=== PATIENT | female | born 1965 | race Caucasian/White ===

== ENCOUNTER 2018-03-24 04:49 | Inpatient (IN) | payer OTHER ==
[2018-03-24] VITALS (51 sets, daily range): BP systolic 92–145; BP diastolic 46–102
[~2018-03-24] VITALS: Ht 157.5 cm; Wt 97.6 kg
--- NOTE | ~2018-03-24 | EEG ---
[facility] [place] [address] [place] [address] ELECTROENCEPHALOGRAM Name: ARIAN HOLCOMB Room #: 207-P ADM IN M.R.#: [id number] Admission: 03/24/18 Attend Phys: Arya Sal MD Discharge: Date of : 63 Report #: [id number] THIS REPORT FOR: //name// CC: Arya SNOW unknown DATE OF SERVICE: 03/24/2018 This patient is being evaluated for altered mental status. EEG was done by placing the electrodes by standard 10-20 system of electrode placement. Both referential and sequential montages were used for recording. Background activity in this patient's EEG is about 9-10 Hz and 30 microvolts. The patient went to sleep that is associated with bilateral slowing and vertex sharp waves. Photic stimulation is unremarkable. Throughout the record, no active epileptiform activity was noticed. IMPRESSION: This EEG is mildly intermixed with theta range slowing on both sides. That is a nonspecific abnormality, which can occur with encephalopathy, effect of psychotropic medication, etc. Finding is relatively mild. No active epileptiform activity was noticed. <ELECTRONICALLY SIGNED> By: Avel Elizalde MD 03/26/18 [id number] [id number] Avel Elizalde MD /nt
--- NOTE | ~2018-03-24 | HC ---
[facility] [place] [address] [address] [place] [address] CONSULTATION Name: ARIAN HOLCOMB Room #: 207-P ADM IN M.R.#: [id number] Admission: 03/24/18 Attend Phys: Arya Sal MD Discharge: Date of : 63 Report #: [id number] THIS REPORT FOR: //name// CC: Arya Sal [facility] unknown ROOM: 242 in ICU. HISTORY OF PRESENT ILLNESS: This is a 52-year-old female patient who was evaluated by me for altered mental status. The patient is not able to provide reliable history because she said she does not remember what happened to her. She has numerous problems going on like the psychiatric problems, some question about her medication, etc. Neurological consultation was requested to evaluate the patient for any neurological etiology for the patient's altered mental status and I will strictly confine myself to that. There is no firsthand witness, but the record indicates that she was found bend over, but apparently does not have any injury to the head or she did not hit her head as I understand. There is some question that she may have taken her medication, which are extensive improperly but she does not know one way or another. She has woken up since then and has become more responsive. REVIEW OF SYSTEMS: She indicates she is disabled. Her disability is because of fibromyalgia. She also says she has a chronic neck pain, which has been evaluated by several MRIs and CT scan and she has multiple scans of the brain also. I do not have any of those records. Apparently, she had CT scan in the outside facility and that was unremarkable. She has multiple psychiatric shows and she is on multiple medications for that. Medication does include Ultram and Elavil, which are epileptiform but that also include Valium, clonazepam and topiramate, which has antiepileptic effect. Records indicate that she has a history of anxiety, depression, gastric bypass, cholecystectomy, urinary tract infection. There was relevant 14-point review of system. PAST MEDICAL HISTORY: Positive for liver problem. FAMILY HISTORY: Negative for early age stroke. SOCIAL HISTORY: She indicates she does not drink any alcohol. PHYSICAL EXAMINATION: Indicate she is alert. She is responsive. She talks softly, but she can tell me what month it is, what hospital she is in, and who the president is. Cranial nerve examinations appear noncontributory. Neuromuscular examinations appear symmetrical. She does not have any meningeal sign and did not complain of much pain there except the baseline pain she has all over the body. I could not look at the fundus. There is no carotid bruit. There is no thyroid mass. She is moderately [place] [address] CONSULTATION Name: ARIAN HOLCOMB Room #: [address] [place] [address] IN M.R.#: [id number] Admission: 03/24/18 Attend Phys: Arya Sal MD Discharge: Date of : 63 Report #: [id number] have any dysmorphic features of eyes, ears and face. Cardiac examinations appear unremarkable. She has no respiratory difficulty. Blood pressure is 118/82, temperature is 96.8, pulse is 85. LABORATORY DATA: Indicate white count of 4.6. Sodium is normal. CT was done outside and was reported as normal. IMPRESSION: It looks like her symptoms were secondary to psychiatric medication, getting mixed up. I will get an EEG to further evaluate her. If she is back to her baseline, I do not think neurologically we need to do much. We might consider MRI, but that is not available until Monday for routine MRIs. I will reevaluate her tomorrow and we might schedule that, but presently there is no indication to make it a stat MRI because she is doing better. Thank you very much for this referral. <ELECTRONICALLY SIGNED> By: Avel Elizalde MD 03/26/18 1135 [id number] Avel Elizalde MD /nt
[2018-03-24 11:20] LABS: HEMATOCRIT 36.3 % (37.0-47.0); HEMOGLOBIN 12.3 gm/dL (12.0-15.0); MCH 30.5 pg (26.0-34.0); MCHC 33.8 g/dL (28.0-37.0); MCV 90.2 fL (80.0-100.0); RBC 4.03 mil/uL (4.20-5.00); RDW 12.7 % (10.5-14.5); WBC 4.6 thou/uL (4.0-11.0)
[2018-03-24 11:44] LABS: CALCIUM 8.8 mg/dL (8.5-10.1)
[2018-03-24 11:50] LABS: ALBUMIN 2.9 g/dL (3.4-5.0); TOTAL BILIRUBIN 0.3 mg/dL (<0.1-1.0); TOTAL PROTEIN 6.3 g/dL (6.4-8.2)
[2018-03-24 11:50] LABS: AMP/METHAMP Negative (Negative); BARBITURATES POSITIVE (Negative); BENZODIAZEPINES Negative (Negative); COCAINE Negative (Negative); METHADONE Negative (Negative); OPIATES Negative (Negative); PCP Negative (Negative)
[2018-03-24] MEDS ORDERED: NEURONTIN 300300 M1 PO (14:43)
[2018-03-24] MEDS ORDERED: AMITRIPTYLINE100 MG PO (14:45)
[2018-03-24] MEDS ORDERED: TROKENDI XR50 MG PO (14:45)
[2018-03-24] MEDS ORDERED: TROKENDI XR100 MG PO (14:45)
[2018-03-24] MEDS ORDERED: TRAMADOL 50 MG50 MG PO ×2 (14:46→14:47)
[2018-03-24] MEDS ORDERED: CLONAZEPAM 1 MG1 M1 PO (14:48)
[2018-03-24] MEDS ORDERED: SERTRALINE HCL50 MG PO (14:49)
[2018-03-24] MEDS ORDERED: FLORINEF ACETA0.1 MG PO (14:51)
[2018-03-24] MEDS ORDERED: ERGOCALCIF50000 UNIT PO (14:52)
[2018-03-24] MEDS ORDERED: BUTALBITAL-APA1 EAC1 PO (14:53)
[2018-03-24] MEDS ORDERED: LIORESAL 10 MG10 MG PO (14:54)
[2018-03-24] MEDS ORDERED: MULTI VITAMIN1 EACH PO (14:54)
[2018-03-24] MEDS ORDERED: AMBIEN 5 MG TABL5 M1 PO (14:55)
[2018-03-25] VITALS (12 sets, daily range): BP systolic 97–148; BP diastolic 58–98
[2018-03-26 05:30] VITALS: BP 140/94
[2018-03-26 05:48] LABS: HEMATOCRIT 34.4 % (37.0-47.0); HEMOGLOBIN 11.5 gm/dL (12.0-15.0); MCH 30.2 pg (26.0-34.0); MCHC 33.5 g/dL (28.0-37.0); RBC 3.82 mil/uL (4.20-5.00); RDW 12.5 % (10.5-14.5); WBC 4.5 thou/uL (4.0-11.0)
[2018-03-26 05:59] LABS: CREATININE 0.8 mg/dL (0.6-1.0); POTASSIUM 3.1 mmol/L (3.5-5.1)
[2018-03-26 08:22] VITALS: BP 145/9
[2018-03-26 10:55] VITALS: BP 121/71
[2018-03-26 15:24] VITALS: BP 140/90
[2018-03-26 19:24] VITALS: BP 140/87
[2018-03-27 04:53] VITALS: BP 125/87
[2018-03-27 07:55] VITALS: BP 122/86
[2018-03-27 11:50] VITALS: BP 140/100
[2018-03-27] MEDS ORDERED: KEFLEX500 M1 PO (14:09)
[2018-03-27 16:10] VITALS: BP 137/91
[2018-03-27 16:30] VITALS: BP 140/100
== END 2018-03-27 19:00 | disposition home or self-care (01) | DRG 689 ==
LOC: ICU 04:49 → 2N 06:00 → ICU 06:00 → 2N 03-25 14:41 → ENTRNSPT 03-27 18:44 → 2N 03-27 19:00
PROVIDERS: Hospitalist
DX: N39.0 Urinary tract infection, site not specified (principal); G92 Toxic encephalopathy; I47.2 Ventricular tachycardia; M79.7 Fibromyalgia; F32.9 Major depressive disorder, single episode, unspecified; F41.9 Anxiety disorder, unspecified; Z98.84 Bariatric surgery status; Z90.49 Acquired absence of other specified parts of digestive tract; Z88.0 Allergy status to penicillin; Z88.2 Allergy status to sulfonamides; Z88.8 Allergy status to other drugs, medicaments and biological substances; Z88.1 Allergy status to other antibiotic agents; Z91.040 Latex allergy status; Z28.21 Immunization not carried out because of patient refusal
CPT/HCPCS: 10078; 10081